=== PATIENT | male | born 1965 | race American Indian/Alaskan Native ===

== ENCOUNTER 2017-10-05 17:08 | Emergency (ER) | payer OTHER ==
[2017-10-05 17:26] VITALS: BMI 22.4
[2017-10-05 17:31] VITALS: O2SAT 99
--- NOTE | 2017-10-05 17:39 | ED PDOC ---
Arrival/HPI - General Historian: Patient - History of Present Illness Time/Duration: < week Symptom Onset: Gradual Symptom Course: Improving Quality: Aching Severity Level: 7 Activities at Onset: Rest - General Chief Complaint: Groin Pain Time Seen by Provider: 10/05/17 17:29 - History of Present Illness Narrative History of Present Illness (Text): 52 year old male with a PMHx of pre-diabetes presents to ED complaining of a knot on his left groin with associated pain and discomfort. Patient denies any trauma or any triggering events that could of cause the pain. He states it exacerbates when he gets up from a sitting position. He has not taken anything the treat the pain. Patient states he works out daily and did core workout the day before the pain began. Patient denies any fevers, chills, testicular heaviness/pain, abdominal pain, urinary frequency, urinary incontinence, dysuria , hematuria, penile discharge, chest pain, SOB, N/V/D, constipation. Patient stated he has recently recovered what he felt was the flu. Additionally, patient complains of swelling on the tip of his penis. He thought he may have noticed it last week but definitely noticed it today. Patient is sexually active with 1 female partner and uses protection. (Sarah Diaz) Past Medical History - Past History Past History: No Previous - Infectious Disease Hx of Infectious Diseases: None - Tetanus Immunization Tetanus Immunization: Unknown - Past Medical History Past Medical History: No Previous - Psychiatric Hx Depression: No Hx Emotional Abuse: No Hx Physical Abuse: No Hx Substance Use: Yes - Past Surgical History Past Surgical History: No Previous - Anesthesia Hx Anesthesia: No Hx Anesthesia Reactions: No Hx Malignant Hyperthermia: No - Suicidal Assessment Feels Threatened In Home Enviroment: No Family/Social History - Physician Review Nursing Documentation Reviewed: Yes Family/Social History: Neoplasm/Cancer (Breast CA (Mother)) Smoking Status: Current Some Days Smoker Hx Alcohol Use: No Hx Substance Use: Yes Substance used: [place] Hx Substance Use Treatment: No Allergies/Home Meds Allergies/Adverse Reactions: Allergies No Known Allergies Allergy (Verified 07/09/13 14:15) Review of Systems - Physician Review All systems were reviewed & negative as marked: Yes (As per HPI) - Review of Systems Respiratory: Normal. absent: SOB Cardiovascular: Normal. absent: Chest Pain Physical Exam Vital Signs Reviewed: Yes Temperature: Afebrile Blood Pressure: Hypertensive Pulse: Regular Respiratory Rate: Normal Appearance: Positive for: Well-Appearing, Non-Toxic Pain Distress: Mild Mental Status: Positive for: Alert and Oriented X 3 - Systems Exam Head: Present: Atraumatic, Normocephalic Extroacular Muscles: Present: EOMI Conjunctiva: Present: Normal Ears: Present: Normal Mouth: Present: Moist Mucous Membranes Nose (External): Present: Atraumatic Respiratory/Chest: Present: Clear to Auscultation Cardiovascular: Present: Regular Rate and Rhythm, Normal S1, S2. No: Murmurs Abdomen: Present: Normal Bowel Sounds. No: Tenderness, Distention, McBurney's Point Tender, Rovsing's Sign Present Genitourinary Male: Present: Penile Swelling, Erythema, Other (LEft Inguinal Mass). No: Penile Discharge, Testicle Tenderness, Testicle Swelling Upper Extremity: Present: Normal Inspection Lower Extremity: Present: Normal Inspection. No: Edema Neurological: Present: GCS=15, Speech Normal Lymphatic: Present: Inguinal Adenopathy Psychiatric: Present: Alert, Oriented x 3 Vital Signs Temp Pulse Resp BP Pulse Ox 10/05/17 22:08 98.4 F 60 18 134/51 L 10/05/17 17:27 98.2 F 61 16 134/92 H 99 Medical Decision Making ED Course and Treatment: 10/05/17 19:17 Patient seen and examined with medical detail representative. On exam, he has mild swelling noted to glans and foreskin of penis. No discharge or lesions noted on penis currently. No white discharge currently noted. He reports NO difficulty urinating. He denies penile discharge. He denies hematuria. He denies any fevers or chills or systemic symptoms. He reports that he noted pain and swelling to penis the same day he noticed pain and swelling to his left groin. On exam he has unilateral lymphadenopathy in left groin but no buboes, no purulence, no ulcerations. He has no testicular pain or swelling. Foreskin is easily retractable and that his swelling is "better than yesterday". He denies any leg or knee or ankle pain or rash or lesions. Denies abdominal pain. Denies difficulty eating. Denies any difficulty moving his bowels. Patient states that he has ONE sexual partner, is monogamous and "always uses protection" and has not had unprotected sex "in over a decade". 10/05/17 22:14 Patient case d/w Dr. Dudley Gonzalez, who will follow-up with patient by phone tomorrow and at office on Saturday. Patient remains afebrile in ED. Not tachycardic, not hypotensive. I have stressed to him abnormal CT findings and have reccommended admission for close monitoring of symptoms, citing limitations of ct scan in diagnosing cancer , prostate disease, and other pathology. He however states that he does not wish to stay in the hospital, reports understanding of limitations of studies as well as need for close follow-up. As he is comfortable, nontoxic appearing, afebrile, urinating well, not tachycardic or hypotensive, he will be discharged with follow-up with urology. I have stressed to patient that he also requires general medical follow-up to evaluate for underlying malignancy or other pathology. (Marshall Gil) 52 year old pre-diabetic male presents with Left Inguinal Mass. --CBC/CMP --UA --GC/Chlamydia --CT Abd/Pelvis --Reassess and Dispo Reassessment: CT Abd/Pelvis Impression by Dr. Orellana reads: 1. Enlarged left inguinal lymph nodes and regional inflammatory changes/cellulitis. Correlate clinically for infectious or inflammatory process. 2. Remainder of findings as above. Dispo: As stated above by Attending. Patient stable for discharge 10/05/17 23:17 (Sarah Diaz) - Lab Interpretations Lab Results: 10/05/17 18:30 10/05/17 18:30 Lab Results 10/05/17 19:55: Urine Color Yellow, Urine Appearance Sl cloudy, Urine pH 6.0, Ur Specific [place] >= 1.030, Urine Protein 30 H, Urine Glucose (UA) Negative, Urine Ketones Trace H, Urine Blood Negative, Urine Nitrate Negative, Urine Bilirubin Negative, Urine Urobilinogen 1.0 H, Ur Leukocyte Esterase Negative, Urine RBC Negative, Urine WBC 5 - 10, Ur Epithelial Cells 3 - 4, Urine Bacteria Few 10/05/17 18:30: Sodium 141, Potassium 4.1, Chloride 104, Carbon Dioxide 28, Anion Gap 12, BUN 16, Creatinine 1.1, Est GFR ( Amer) > 60, Est GFR (Non- Af Amer) > 60, Random Glucose 100, Calcium 9.7, Total Bilirubin 0.8, AST 26, ALT 29, Alkaline Phosphatase 63, Total Protein 8.0, Albumin 4.4, Globulin 3.6, Albumin/Globulin Ratio 1.2 10/05/17 18:30: WBC 7.4, RBC 4.68, Hgb 14.8, Hct 43.2, MCV 92.3, MCH 31.6, MCHC 34.3, RDW 12.7, Plt Count 172, MPV 10.1, Gran % 49.5 L, Lymph % (Auto) 40.3 H, [place] % (Auto) 8.9 H, Eos % (Auto) 1.2 L, Baso % (Auto) 0.1, Gran # 3.66, Lymph # 3.0, [place] # 0.7 H, Eos # 0.1, Baso # 0.01 - RAD Interpretation Radiology Orders: 10/05/17 18:19 ABD & PELVIS W/O PO OR IV CONT [CT] Stat - Medication Orders Current Medication Orders: Discontinued Medications Azithromycin (Zithromax) 1,000 mg PO STAT STA PRN Reason: Protocol Stop: 10/05/17 20:33 Last Admin: 10/05/17 20:49 Dose: 1,000 mg Ceftriaxone Sodium (Rocephin) 125 mg IM STAT STA PRN Reason: Protocol Stop: 10/05/17 20:32 Last Admin: 10/05/17 20:49 Dose: 125 mg IM Administration Charges Document 10/05/17 20:49 RD (Rec: 10/05/17 20:49 RD [id number]) Injection Site MAR Injection Site Left Gluteus [place] Charges for Administration # of IM Administrations 1 Disposition/Present on Arrival - Present on Arrival Any Indicators Present on Arrival: No History of DVT/PE: No History of Uncontrolled Diabetes: No Urinary Catheter: No History of Decub. Ulcer: No History Surgical Site Infection Following: None - Disposition Have Diagnosis and Disposition been Completed?: No Disposition Time: 23:00 Patient Plan: Discharge - Disposition Diagnosis: Balanoposthitis, Inguinal lymphadenopathy Disposition: HOME/ ROUTINE Patient Problems: Current Active Problems Problem Status Onset Balanoposthitis Acute Inguinal lymphadenopathy Acute Condition: GOOD Discharge Instructions (ExitCare): Balanitis (ED), Groin Pain (ED) Additional Instructions: You MUST follow-up closely with a urologist and your primary care doctor. If you experience return of any penile swelling, any difficulty moving your foreskin, any difficulty urinating, any redness or discharge or blisters, any testicular pain or swelling, get rechecked immediately. Follow-up with Dr. Dudley Gonzalez (urologist) on Saturday. Call him tomorrow at to arrange appointment. You require a recheck of swelling in your left groin. Please follow-up closely with your physician for re-evaluation, and return immediately if you develop any increase in pain or swelling, any blisters, any discharge, any ulcers. Refrain from masturbation or sexual activity while symptomatic. Take antibiotics as directed. For any abdominal pain, leg pain, rash, fevers, cough, shortness of breath, any persistent or worsening of symptoms, get rechecked immediately. Prescriptions: Cephalexin [cephalexin] 500 mg PO QID #28 cap Referrals: Drew Gonzalez MD [Staff Provider] - Follow up with primary Forms: [employer] (Greek), WORK NOTE
[2017-10-05 18:56] LABS: BASO # 0.01 K/mm3 (0.0-2.0); BASO % 0.1 % (0.0-3.0); EOS # 0.1 (0.0-0.7); EOS % 1.2 % (1.5-5.0); GRAN # 3.66 (1.4-6.5); GRAN % 49.5 % (50.0-68.0); HEMATOCRIT 43.2 % (42.0-52.0); LYMPH % 40.3 % (22.0-35.0); MEAN CELL VOLUME 92.3 fl (80.0-105.0); MEAN CORPUSCULAR HEMOGLOBIN 31.6 pg (25.0-35.0); MEAN CORPUSCULAR HGB CONC 34.3 g/dl (31.0-37.0); MEAN PLATELET VOLUME 10.1 fl (7.0-11.0); MONO # 0.7 (0.1-0.6); MONO % 8.9 % (1.0-6.0); RED CELL DISTRIBUTION WIDTH 12.7 % (11.5-14.5); WHITE BLOOD COUNT 7.4 10^3/ul (4.5-11.0)
[2017-10-05 19:24] LABS: ALB/GLOB RATIO 1.2 (1.1-1.8); ALKALINE PHOSPHATASE 63 U/L (38-126); ALT/SGPT 29 U/L (7-56); AST/SGOT 26 U/L (17-59); BILIRUBIN,TOTAL 0.8 mg/dL (0.2-1.3); BLOOD UREA NITROGEN 16 mg/dL (7-21); CALCIUM 9.7 mg/dL (8.4-10.5); CARBON DIOXIDE 28 mmol/L (21-33); CHLORIDE 104 mmol/L (98-107); GFR AFRICAN-AMERICAN > 60; GLUCOSE,RANDOM 100 mg/dL (70-110); POTASSIUM 4.1 mmol/L (3.6-5.0); SODIUM 141 mmol/L (132-148)
--- NOTE | 2017-10-05 19:29 | CT ---
EXAM: CT Abdomen and Pelvis Without Intravenous Contrast CLINICAL HISTORY: 52 years old, male; Pain; Abdominal pain; Localized; Left lower quadrant (llq); Additional info: Left inguinal mass TECHNIQUE: Axial computed tomography images of the abdomen and pelvis without intravenous contrast. All CT scans at this facility use one or more dose reduction techniques, viz.: automated exposure control; ma/kV adjustment per patient size (including targeted exams where dose is matched to indication; i.e. head); or iterative reconstruction technique. Coronal and sagittal reformatted images were created and reviewed. COMPARISON: None. FINDINGS: Lower thorax: No acute findings. ABDOMEN: Liver: Unremarkable. Gallbladder and bile ducts: Unremarkable. No calcified stones. No ductal dilation. Pancreas: Unremarkable. No ductal dilation. Spleen: Unremarkable. No splenomegaly. Adrenals: Unremarkable. No mass. Kidneys and ureters: Punctate right renal calculus. Left kidney is unremarkable. No hydronephrosis. Stomach and bowel: Unremarkable. No obstruction. Appendix: No findings to suggest acute appendicitis. PELVIS: Bladder: Unremarkable. No stones. Reproductive: Unremarkable as visualized. ABDOMEN and PELVIS: Intraperitoneal space: Unremarkable. No free air. No significant fluid collection. Bones/joints: No acute fracture. No dislocation. Soft tissues: Regional soft tissue inflammation. Vasculature: Unremarkable. No abdominal aortic aneurysm. Lymph nodes: Enlarged left inguinal lymph nodes. Largest measures 3.4 CM longitudinally. Enlarged right inguinal lymph nodes. IMPRESSION: 1. Enlarged left inguinal lymph nodes and regional inflammatory changes/cellulitis. Correlate clinically for infectious or inflammatory process. 2. Remainder of findings as above.
[2017-10-05 20:01] LABS: URINE BILIRUBIN NEGATIVE (NEGATIVE); URINE BLOOD NEGATIVE (NEGATIVE); URINE GLUCOSE (UA) NEGATIVE (NEGATIVE); URINE KETONE TRACE mg/dL (NEGATIVE); URINE LEUKOCYTE ESTERASE NEGATIVE Leu/uL (NEGATIVE); URINE PROTEIN 30 mg/dL (<30 mg/dL)
[2017-10-05 20:12] LABS: URINE COLOR YELLOW (YELLOW)
[2017-10-05 20:13] LABS: URINE APPEARANCE SL CLOUDY (CLEAR)
[2017-10-05 20:15] LABS: URINE BACTERIA FEW (NEG); URINE RBC NEGATIVE /hpf (0-2)
[2017-10-05] MEDS ORDERED: cefTRIAXone (Rocephin) 250 mg Inj IM STA (20:31)
[2017-10-05 22:09] VITALS: BP 134/51; PULSE 60; RESP 18; TEMP 98.4
== END 2017-10-05 22:15 | disposition home or self-care (01) ==
LOC: ED 17:08
DX: N47.6 Balanoposthitis (principal); R59.0 Localized enlarged lymph nodes
CPT/HCPCS: 74176; 80053; 81001; 85025; 86592; 87086; 96372; 99282; J0696